=== PATIENT | male | born 1980 | race Caucasian/White ===

== ENCOUNTER 2017-04-07 22:53 | Emergency (ER) | payer MEDICAID ==
[2017-04-08 00:16] VITALS: BP 151/88
--- NOTE | 2017-04-08 00:29 | EDM.PDOC ---
ED HPI GENERAL MEDICAL PROBLEM - General Chief Complaint: Neurological Problem Stated Complaint: SEIZURES 3 TODAY Time Seen by Provider: 04/08/17 00:05 Source of Information: Reports: Patient History Limitations: Reports: No Limitations - History of Present Illness INITIAL COMMENTS - FREE TEXT/NARRATIVE: 37-year-old male was dropped off at the emergency room because of "3 seizures today". He has a history of seizures, was on seizure medicine last year but an extensive workup revealed no cause of the seizures and he was eventually tapered off the medication. He admits to recent drug use including methamphetamine and cocaine. He has some mild photophobia but no nausea or vomiting. He thinks she's been losing weight. No fevers or chills, denies shortness of breath. No recent head injury. He is an insulin-dependent diabetic but has not had his insulin for the last 7 days because he "hasn't had time to go to the store.'" Associated Symptoms: Reports: Confusion, Other (Mild to moderate photophobia). Denies: Headaches - Related Data Allergies Allergy/AdvReac Type Severity Reaction Status Date / Time No Known Allergies Allergy Verified 07/23/15 23:26 Home Meds: Home Meds Glimepiride [Glimepiride] 2 mg PO DAILY 05/12/13 [History] Hydrochlorothiazide/Lisinopril [Lisinopril-HCTZ 20-25 MG] 1 tab PO DAILY [History] Minocycline [Minocin] 50 mg PO BID 07/23/15 [History] Simvastatin [Simvastatin] 20 mg PO BEDTIME 07/23/15 [History] Insulin Glargine,Hum.Rec.Anlog [Basaglar Kwikpen U-100] 40 units SQ BID [History] Insuln Asp Prot/Insulin Aspart [NovoLOG Mix 70-30] 04/08/17 [History] Past Medical History Cardiovascular History: Reports: High Cholesterol, Hypertension Respiratory History: Reports: None Genitourinary History: Reports: None Musculoskeletal History: Reports: Back Pain, Chronic Psychiatric History: Reports: Suicide Attempt, Suicidal Ideation Endocrine/Metabolic History: Reports: Diabetes, Type II Oncologic (Cancer) History: Reports: None - Past Surgical History GI Surgical History: Reports: None Male Surgical History: Reports: Circumcision, Vasectomy Other Male Surgeries/Procedures: The circumcision and vasectomy was done in June of 2014. Other Neurological Surgeries/Procedures: CAPPS: daily, location: B posterior occipital region, intensity: 5/10 Social & Family History - Family History Family Medical History: Noncontributory - Tobacco Use Smoking Status *Q: Current Every Day Smoker Years of Tobacco use: 12 Packs/Tins Daily: 1 Used Tobacco, but Quit: No Month Tobacco Last Used: 08/2012 Second Hand Smoke Exposure: Yes - Caffeine Use Caffeine Use: Reports: None - Alcohol Use Days Per Week of Alcohol Use: 2 Number of Drinks Per Day: 1 Total Drinks Per Week: 2 - Recreational Drug Use Recreational Drug Use: Yes Drug Use in Last 12 Months: Yes Recreational Drug Type: Reports: Cocaine, Heroin, Methamphetamine Other Recreational Drug Type: last used yesterday Recreational Drug Use Frequency: Socially Recreational Drug Last Use: 1600 ED ROS GENERAL - Review of Systems Review Of Systems: See Below Constitutional: Denies: Fever, Chills HEENT: Reports: Other (Photophobia) Respiratory: Reports: No Symptoms Cardiovascular: Reports: No Symptoms GI/Abdominal: Reports: No Symptoms : Reports: No Symptoms. Denies: Incontinence Musculoskeletal: Reports: No Symptoms Skin: Denies: Bruising Neurological: Denies: Headache - Physical Exam Exam: See Below Exam Limited By: No Limitations General Appearance: Alert, No Apparent Distress Eye Exam: Bilateral Eye: PERRL Head Exam: Atraumatic Respiratory/Chest: No Respiratory Distress, Lungs Clear Cardiovascular: Regular Rate, Rhythm Neuro Exam (Abbreviated): Alert, Oriented, No Motor/Sensory Deficits Psychiatric: Normal Affect Skin Exam: Warm, Dry Course - Vital Signs Last Recorded V/S: Last Vital Signs Temp 98.6 F 04/08/17 00:15 Pulse 85 04/08/17 00:15 Resp 16 04/08/17 00:15 BP 151/88 H 04/08/17 00:15 Pulse Ox 99 04/08/17 00:15 - Orders/Labs/Meds Labs: Laboratory Tests 04/08/17 04/08/17 04/08/17 Range/Units 00:25 00:25 00:52 WBC 11.7 H (4.5-11.0) K/uL RBC 5.15 (4.30-5.90) M/uL Hgb 15.5 H (12.0-15.0) g/dL Hct 44.6 (40.0-54.0) % MCV 87 (80-98) fL MCH 30 (27-31) pg MCHC 35 (32-36) % Plt Count 194 (150-400) K/uL Neut % (Auto) 65 (36-66) % Lymph % (Auto) 21 L (24-44) % [place] % (Auto) 12 H (2-6) % Eos % (Auto) 2 (2-4) % Baso % (Auto) 0 (0-1) % Sodium 137 L (140-148) mmol/L Potassium 3.9 (3.6-5.2) mmol/L Chloride 101 (100-108) mmol/L Carbon Dioxide 30 (21-32) mmol/L Anion Gap 9.9 (5.0-14.0) mmol/L BUN 9 (7-18) mg/dL Creatinine 0.8 (0.8-1.3) mg/dL Est Cr Clr Drug Dosing 140.11 mL/min Estimated GFR (MDRD) > 60 (>60) Glucose 263 H (74-106) mg/dL Calcium 9.0 (8.5-10.1) mg/dL Magnesium 1.8 (1.8-2.4) mg/dL Total Bilirubin 0.4 (0.2-1.0) mg/dL AST 13 L (15-37) U/L ALT 32 (12-78) U/L Alkaline Phosphatase 55 (46-116) U/L Total Protein 6.4 (6.4-8.2) g/dL Albumin 3.2 L (3.4-5.0) g/dL Globulin 3.2 (2.3-3.5) g/dL Albumin/Globulin Ratio 1.0 L (1.2-2.2) Urine Opiates Screen Negative (NEGATIVE) Ur Oxycodone Screen Negative (NEGATIVE) Urine Methadone Screen Negative (NEGATIVE) Ur Propoxyphene Screen Negative (NEGATIVE) Ur Barbiturates Screen Negative (NEGATIVE) Ur Tricyclics Screen Negative (NEGATIVE) Ur Phencyclidine Scrn Negative (NEGATIVE) Ur Amphetamine Screen Negative (NEGATIVE) U Methamphetamines Scrn Positive H (NEGATIVE) Urine MDMA Screen Negative (NEGATIVE) U Benzodiazepines Scrn Positive H (NEGATIVE) U Cocaine Metab Screen Negative (NEGATIVE) U Marijuana (THC) Screen Negative (NEGATIVE) Meds: Medications Discontinued Medications Generic Name Dose Route Start Last Admin Trade Name Renu PRN Reason Stop Dose Admin Insulin Detemir 20 unit 04/08/17 01:14 04/08/17 01:40 Levemir SUBCUT 04/08/17 01:15 20 units ONETIME ONE Administration Insulin Detemir Confirm 04/08/17 01:36 Levemir Administered 04/08/17 01:37 Dose 300 unit .ROUTE .STK-MED ONE Insulin Detemir 20 unit 04/08/17 01:53 Levemir SUBCUT 04/08/17 01:54 ONETIME ONE - Re-Assessments/Exams Free Text/Narrative Re-Assessment/Exam: 04/08/17 00:29 CBC, CMP and magnesium were obtained. Urine tox screen also obtained 04/08/17 01:15 Urine tox screen is positive for methamphetamine and benzodiazepines. He admits recently using methamphetamine but has no idea where the benzodiazepine would come from. He continued to have some photophobia, but was reassured that his CBC and CMP were normal other than a glucose of 263. He was given 20 units of long-acting insulin subcutaneous. I explained to the patient I had no reason for hospitalization, we don't have beds available anyway and he became upset because he had no way to go home and wanted an ambulance to transfer him to [place]. 04/08/17 02:18 [facility] was called and accepted the patient for detox. Apparently he was very recently there. He admitted that they discharged him because he didn't have his medications. I advised them to put him on a sliding scale for his glucose, his other medications are not necessary until his discharge. Departure - Departure Time of Disposition: 02:29 Disposition: DC/Tfer to Other 70 Condition: Fair Clinical Impression: Hyperglycemia, Methamphetamine abuse, Seizure disorder - Discharge Information Instructions: Seizure, Adult, [id number] Referrals: PCP,None [Primary Care Provider] - Forms: ED Department Discharge Care Plan Goals: It's very important that you avoid abusing illegal drugs such as methamphetamine , and return to taking your prescribed medicines appropriately.
[2017-04-08] MEDS ORDERED: Insulin Detemir 100 Units/ML 3 ML Pen ONE (01:36)
== END 2017-04-08 02:29 | disposition other institution (70) ==
LOC: JP.ED 22:53
DX: G40.909 Epilepsy, unspecified, not intractable, without status epilepticus (principal); E11.65 Type 2 diabetes mellitus with hyperglycemia; F15.10 Other stimulant abuse, uncomplicated; E78.00 Pure hypercholesterolemia, unspecified; I10 Essential (primary) hypertension; F17.210 Nicotine dependence, cigarettes, uncomplicated; Z79.899 Other long term (current) drug therapy; Z79.84 Long term (current) use of oral hypoglycemic drugs
CPT/HCPCS: 36415; 80053; 80305; 83735; 85025; 99285; A9270